=== PATIENT | male | born 1960 | race African-American/Black ===

== ENCOUNTER 2016-11-28 15:02 | Emergency (ER) | payer SELFPAY ==
[~2016-11-28] VITALS: Ht 180.3 cm; Wt 80.0 kg
[2016-11-28 15:03] VITALS: BP 124/70
== END 2016-11-28 19:44 | disposition left against medical advice (07) ==
LOC: ER 15:22
DX: M25.522 Pain in left elbow (principal); Z53.21 Procedure and treatment not carried out due to patient leaving prior to being seen by health care provider